=== PATIENT | male | born 1995 | race Caucasian/White ===

== ENCOUNTER 2020-08-16 16:46 | Outpatient (CLI) | payer BC, SELFPAY ==
[2020-08-17 10:29] LABS: Epithelial Count Semen 0-4 /hpf; Pathology Referral Yes; Red Blood Count Semen 0-4 /hpf; Sperm Immotility 40 % (50-60); Sperm Non-Progressive Motility 10 % (5-10); Sperm Progressive Motility 50 % (31-34); Viscosity Semen High Viscosity
[2020-08-17 10:33] LABS: Side 1 12; Side 2 12
== END 2020-08-16 16:47 | disposition home or self-care (01) ==
PROVIDERS: PCP Family Medicine; Visit Provider Obstetrics & Gynecology
DX: N46.9 Male infertility, unspecified (principal)
CPT/HCPCS: 80500; 89320

== ENCOUNTER → 2020-10-06 15:37 | Outpatient (BNVA) | payer BC, SELFPAY | PROVIDERS: PCP Family Medicine; Visit Provider Urology | DX: N46.11 Organic oligospermia (principal) | CPT/HCPCS: 83001; 83002; 84403 ==